=== PATIENT | male | born 1940 | race Caucasian/White ===

== ENCOUNTER → 2016-09-16 | Outpatient (CLI) | payer MEDICARE ==
--- NOTE | 2016-09-16 14:04 | US ---
EXAMINATION TYPE: US venous doppler duplex LE RT DATE OF EXAM: 09/16/2016 1:45 PM COMPARISON: 11/21/2014 CLINICAL HISTORY: M79.661 PAIN IN RT LOWER LIMB. Edema. SIDE PERFORMED: Right leg. TECHNIQUE: The lower extremity deep venous system is examined utilizing real time linear array sonog raven with graded compression, doppler sonography and color-flow sonography. VESSELS IMAGED: External Iliac Vein (EIV) Common Femoral Vein Deep Femoral Vein Greater Saphenous Vein * Femoral Vein Popliteal Vein Small Saphenous Vein * Proximal Calf Veins (* superficial vessels) Right Leg: No evidence of DVT visualized. Limited due to large body habitus. IMPRESSION: 1. Limited exam due to above findings. No diagnostic evidence of DVT as visualized.
== END ==
LOC: RADUSWWP 12:44
PROVIDERS: ATTEND Internal Medicine
DX: M79.661 Pain in right lower leg (principal)

== ENCOUNTER → 2016-10-04 | Outpatient (CLI) | payer MEDICARE ==
--- NOTE | 2016-10-09 10:05 | P.ARTDOP ---
Arterial Doppler LOWER EXTREMITY ARTERIAL DOPPLER: DATE OF SERVICE: 10/04/2016 Reason for study: Right lower leg wound. Doppler waveforms: Multiphasic bilaterally throughout. Pulse volume recording: Normal configuration. Pressure gradients: Only mild distally. Ankle-brachial indices: Greater than 1 bilaterally. Toe pressures: 70 on the right, 50 on the left Impression: Normal proximal study. Decreased toe pressures of uncertain significance. May be vasospasm or very distal disease. Tissue perfusion is quite adequate for healing..
== END ==
LOC: RADUSWWP 08:47
PROVIDERS: ATTEND Podiatrist
DX: M79.604 Pain in right leg (principal)
CPT/HCPCS: 93923

== ENCOUNTER 2017-07-18 10:42 | Emergency (ER) | payer MEDICARE ==
[2017-07-18 10:59] LABS: Glucose,Whole Blood 132 mg/dL (75-99)
[2017-07-18] MEDS ORDERED: SODIUM CHLORIDE 0.9% 1,000 ML IV STA (11:00)
--- NOTE | 2017-07-18 11:22 | ED ---
General Adult HPI - General Chief complaint: Neuro Symptoms/Deficit Stated complaint: Poss CVA Time Seen by Provider: 07/18/17 10:56 Source: patient, RN notes reviewed, old records reviewed Mode of arrival: EMS Limitations: no limitations - History of Present Illness Initial comments: This is a 69-year-old male to the ER for evaluation. Patient comes in with history of multiple medical comorbidities for evaluation regarding weakness not feeling himself. Patient states he just doesn't feel right. Some mild weakness in the left side. No headache mild congestion, no recent fevers. No abdominal pain no shortness of breath or chest pain - Related Data Home Medications Medication Instructions Recorded Confirmed Allopurinol [Zyloprim] 100 mg PO DAILY 09/19/16 07/18/17 Ascorbic Acid [Vitamin C] 2,000 mg PO DAILY 09/19/16 07/18/17 Aspirin 81 mg PO DAILY 09/19/16 07/18/17 Atenolol [Tenormin] 50 mg PO DAILY 09/19/16 07/18/17 Atorvastatin [Lipitor] 40 mg PO HS 09/19/16 07/18/17 Carbidopa-Levodopa 25-250 mg 1 each PO TID 09/19/16 07/18/17 [Sinemet 25-250] Cinnamon Bark [Cinnamon] 2,000 mg PO DAILY 09/19/16 07/18/17 Donepezil [Aricept] 10 mg PO HS 09/19/16 07/18/17 Furosemide [Lasix] 40 mg PO DAILY 09/19/16 07/18/17 Lisinopril [Zestril] 5 mg PO DAILY 09/19/16 07/18/17 Magnesium 400 mg PO DAILY 09/19/16 07/18/17 Multivitamin [Men's Multi-Vitamin] 1 each PO DAILY 09/19/16 07/18/17 Oxybutynin Chloride [Ditropan XL] 10 mg PO DAILY 09/19/16 07/18/17 Potassium 595 mg PO DAILY 09/19/16 07/18/17 Sertraline [Zoloft] 100 mg PO DAILY 09/19/16 07/18/17 carBAMazepine [TEGretol] 400 mg PO TID 09/19/16 07/18/17 rOPINIRole HCL [Requip] 3 mg PO HS 09/19/16 07/18/17 Brimonidine Tartrate [Alphagan P 1 drop LEFT EYE BID 07/18/17 07/18/17 0.2% Ophth Soln] Ergocalciferol [Vitamin D2] 50,000 unit PO DUCKWORTH 07/18/17 07/18/17 Latanoprost Ophth [Xalatan 0.005%] 1 drops BOTH EYES HS 07/18/17 07/18/17 Levothyroxine Sodium [Synthroid] 300 mcg PO DAILY 07/18/17 07/18/17 Allergies Allergy/AdvReac Type Severity Reaction Status Date / Time Sulfa (Sulfonamide Allergy Anaphylaxis Verified 07/18/17 11:20 Antibiotics) Review of Systems ROS Statement: Those systems with pertinent positive or pertinent negative responses have been documented in the HPI. ROS Other: All systems not noted in ROS Statement are negative. Past Medical History Past Medical History: Atrial Fibrillation, Cancer, Deep Vein Thrombosis (DVT), Hyperlipidemia, Hypertension, Memory Impairment, Neurologic Disorder, Skin Disorder, Sleep Apnea/CPAP/BIPAP, Thyroid Disorder Additional Past Medical History / Comment(s): trigeminal neuralgia History of Any Multi-Drug Resistant Organisms: None Reported Past Surgical History: Heart Catheterization With Stent, Hernia Repair Additional Past Surgical History / Comment(s): lithotripsy Past Anesthesia/Blood Transfusion Reactions: No Reported Reaction Date of Last Stent Placement:: unknown Past Psychological History: No Psychological Hx Reported Past Alcohol Use History: None Reported - Past Family History Mother Family Medical History: No Reported History Father History Unknown: Yes Additional Family Medical History / Comment(s): Father left the home when pt was 4 yrs old. General Exam - General Exam Comments Initial Comments: NIH of 2 left-sided weakness Limitations: no limitations General appearance: alert, in no apparent distress Head exam: Present: atraumatic, normocephalic, normal inspection Eye exam: Present: normal appearance, PERRL, EOMI. Absent: scleral icterus, conjunctival injection, periorbital swelling ENT exam: Present: normal exam, mucous membranes moist Neck exam: Present: normal inspection. Absent: tenderness, meningismus, lymphadenopathy Respiratory exam: Present: normal lung sounds bilaterally. Absent: respiratory distress, wheezes, rales, rhonchi, stridor Cardiovascular Exam: Present: regular rate, normal rhythm, normal heart sounds. Absent: systolic murmur, diastolic murmur, rubs, gallop, clicks GI/Abdominal exam: Present: soft, normal bowel sounds. Absent: distended, tenderness, guarding, rebound, rigid Extremities exam: Present: normal inspection, full ROM, normal capillary refill. Absent: tenderness, pedal edema, joint swelling, calf tenderness Back exam: Present: normal inspection Neurological exam: Present: alert, oriented X3, CN II-XII intact Psychiatric exam: Present: normal affect, normal mood Skin exam: Present: warm, dry, intact, normal color. Absent: rash Course Vital Signs 07/18/17 07/18/17 07/18/17 10:46 11:54 13:16 Pulse Rate 85 77 99 Respiratory 22 20 18 Rate Blood Pressure 161/108 145/102 132/85 O2 Sat by Pulse 94 L 98 99 Oximetry 07/18/17 14:08 Pulse Rate 80 Respiratory 18 Rate Blood Pressure 160/105 O2 Sat by Pulse 100 Oximetry - Reevaluation(s) Reevaluation #1: 07/18/17 15:04 Patient not TPA candidate secondary to improving symptoms, low NIH EKG Findings - EKG Comments: EKG Findings:: EKG shows A. fib rate of 81, QRS 112, QTc 478 Medical Decision Making - Medical Decision Making 69 female the ER for evaluation. Patient presents today for evaluation regards to left-sided weakness as well as pneumonia. Patient has resolving symptoms. We'll treat patient for underlying infection, admit for neurological evaluation and treatment, monitoring of neurological state - Lab Data Result diagrams: 07/18/17 10:57 07/18/17 10:57 Lab Results 07/18/17 07/18/17 07/18/17 Range/Units 10:48 10:57 10:57 WBC 8.5 (3.8-10.6) k/uL RBC 3.80 L (4.30-5.90) m/uL Hgb 13.2 (13.0-17.5) gm/dL Hct 39.1 (39.0-53.0) % MCV 102.7 H (80.0-100.0) fL MCH 34.6 (25.0-35.0) pg MCHC 33.7 (31.0-37.0) g/dL RDW 13.4 (11.5-15.5) % Plt Count 145 L (150-450) k/uL Neutrophils % 56 % Lymphocytes % 37 % Monocytes % 3 % Eosinophils % 2 % Basophils % 1 % Neutrophils # 4.7 (1.3-7.7) k/uL Lymphocytes # 3.1 (1.0-4.8) k/uL Monocytes # 0.3 (0-1.0) k/uL Eosinophils # 0.2 (0-0.7) k/uL Basophils # 0.0 (0-0.2) k/uL Macrocytosis Slight PT (9.0-12.0) sec INR (<1.2) APTT (22.0-30.0) sec Sodium (137-145) mmol/L Potassium (3.5-5.1) mmol/L Chloride (98-107) mmol/L Carbon Dioxide (22-30) mmol/L Anion Gap mmol/L BUN (9-20) mg/dL Creatinine (0.66-1.25) mg/dL Est GFR (CKD-EPI)AfAm (>60 ml/min/1.73 sqM) Est GFR (CKD-EPI)NonAf (>60 ml/min/1.73 sqM) Glucose (74-99) mg/dL POC Glucose (mg/dL) 132 H (75-99) mg/dL POC Glu Chief Telephone Operator ID [place] Calcium (8.4-10.2) mg/dL Phosphorus (2.5-4.5) mg/dL Magnesium (1.6-2.3) mg/dL Total Bilirubin (0.2-1.3) mg/dL AST (17-59) U/L ALT (21-72) U/L Alkaline Phosphatase (38-126) U/L Total Creatine Kinase 87 (55-170) U/L CK-MB (CK-2) 2.9 H* (0.0-2.4) ng/mL CK-MB (CK-2) Rel Index 3.3 Troponin I <0.012 (0.000-0.034) ng/mL Total Protein (6.3-8.2) g/dL Albumin (3.5-5.0) g/dL 07/18/17 07/18/17 Range/Units 10:57 10:57 WBC (3.8-10.6) k/uL RBC (4.30-5.90) m/uL Hgb (13.0-17.5) gm/dL Hct (39.0-53.0) % MCV (80.0-100.0) fL MCH (25.0-35.0) pg MCHC (31.0-37.0) g/dL RDW (11.5-15.5) % Plt Count (150-450) k/uL Neutrophils % % Lymphocytes % % Monocytes % % Eosinophils % % Basophils % % Neutrophils # (1.3-7.7) k/uL Lymphocytes # (1.0-4.8) k/uL Monocytes # (0-1.0) k/uL Eosinophils # (0-0.7) k/uL Basophils # (0-0.2) k/uL Macrocytosis PT 10.4 (9.0-12.0) sec INR 1.1 (<1.2) APTT 21.3 L (22.0-30.0) sec Sodium 145 (137-145) mmol/L Potassium 4.2 (3.5-5.1) mmol/L Chloride 109 H (98-107) mmol/L Carbon Dioxide 22 (22-30) mmol/L Anion Gap 14 mmol/L BUN 20 (9-20) mg/dL Creatinine 0.78 (0.66-1.25) mg/dL Est GFR (CKD-EPI)AfAm >90 (>60 ml/min/1.73 sqM) Est GFR (CKD-EPI)NonAf 87 (>60 ml/min/1.73 sqM) Glucose 137 H (74-99) mg/dL POC Glucose (mg/dL) (75-99) mg/dL POC Glu Chief Telephone Operator ID Calcium 9.2 (8.4-10.2) mg/dL Phosphorus 3.6 (2.5-4.5) mg/dL Magnesium 2.0 (1.6-2.3) mg/dL Total Bilirubin 0.5 (0.2-1.3) mg/dL AST 27 (17-59) U/L ALT 30 (21-72) U/L Alkaline Phosphatase 77 (38-126) U/L Total Creatine Kinase (55-170) U/L CK-MB (CK-2) (0.0-2.4) ng/mL CK-MB (CK-2) Rel Index Troponin I (0.000-0.034) ng/mL Total Protein 6.7 (6.3-8.2) g/dL Albumin 3.8 (3.5-5.0) g/dL - Radiology Data Radiology results: report reviewed (CT brain negative, chest x-ray positive pneumonia), image reviewed Disposition Clinical Impression: Cerebrovascular accident, Pneumonia, Weakness Disposition: ADMITTED IP TO THIS [facility] Condition: Fair
[2017-07-18 11:23] LABS: Basophils % (A) 1 %; Eosinophils # (A) 0.2 k/uL (0-0.7); Eosinophils % (A) 2 %; HCT 39.1 % (39.0-53.0); HGB 13.2 gm/dL (13.0-17.5); Lymphocytes # (A) 3.1 k/uL (1.0-4.8); Lymphocytes % (A) 37 %; MCH 34.6 pg (25.0-35.0); MCHC 33.7 g/dL (31.0-37.0); MCV 102.7 fL (80.0-100.0); Macrocytosis Slight; Mean Platelet Volume 7.7; Monocytes # (A) 0.3 k/uL (0-1.0); Monocytes % (A) 3 %; Neutrophils # (A) 4.7 k/uL (1.3-7.7); Neutrophils % (A) 56 %; Platelet Count 145 k/uL (150-450); RDW 13.4 % (11.5-15.5); WBC 8.5 k/uL (3.8-10.6)
[2017-07-18 11:37] LABS: ALT 30 U/L (21-72); AST 27 U/L (17-59); Albumin 3.8 g/dL (3.5-5.0); Alkaline Phosphatase 77 U/L (38-126); Anion Gap 14 mmol/L; Blood Urea Nitrogen 20 mg/dL (9-20); Calcium 9.2 mg/dL (8.4-10.2); Carbon Dioxide 22 mmol/L (22-30); Chloride 109 mmol/L (98-107); Glucose 137 mg/dL (74-99); Phosphorus 3.6 mg/dL (2.5-4.5); Potassium 4.2 mmol/L (3.5-5.1); Sodium 145 mmol/L (137-145); Total Bilirubin 0.5 mg/dL (0.2-1.3); Total Protein 6.7 g/dL (6.3-8.2)
--- NOTE | 2017-07-18 11:53 | CT ---
EXAMINATION TYPE: CT brain wo con DATE OF EXAM: 07/18/2017 COMPARISON: 03/21/2015 INDICATION: Possible CVA DLP: 1120.80 mGycm, Automated exposure control for dose reduction was used. CONTRAST: None CT of the brain is performed utilizing 3 mm thick sections through the posterior fossa and 3 mm thick sections through the remaining calvarium. Study is performed within 24 hours of arrival to the hosp ital. No abnormal hyperdensity is present to suggest an acute intracranial hemorrhage. No suspicious solid mass lesion is evident. There is mass affect on the brainstem from an enlarging b asilar artery aneurysm. This currently measures approximately 2.2 x 2.8 cm. Previous transverse dimen leland is 1.8 cm. The more distal basilar artery remains prominent but not enlarged from the comparison and is stable at 0.8 cm. The right vertebral artery appears aneurysmal and is slightly increased in size from the prior study increased to 1.3 cm from 1.0 cm. No acute infarcts are evident. Ventricles and sulci are prominent for the patient age. Paranasal sinuses and mastoid air cells within the [id number] are clear. IMPRESSIONS: 1. 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 This is increased from 1.8 cm to at least 2.2 cm in transverse dimension. 2. 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
--- NOTE | 2017-07-18 11:54 | XR ---
EXAMINATION TYPE: XR chest 2V DATE OF EXAM: 07/18/2017 COMPARISON: NONE HISTORY: Shortness of breath TECHNIQUE: Frontal and lateral views of the chest are obtained. FINDINGS: Scattered senescent parenchymal changes noted. Left basilar infiltrate is difficult to exclude. Correlate clinically and consider progress studies. The heart is enlarged without evidence for overt failure. Mediastinal structures are stable and grossly unremarkable. No evidence for hilar prominence. Degenerative changes dorsal spine. IMPRESSION: 1. Left basilar infiltrate is difficult to exclude. Correlate clinically and consider progress studie s.
[2017-07-18 11:55] LABS: Creatine Kinase 87 U/L (55-170)
[2017-07-18 12:04] LABS: INR 1.1 (<1.2); Prothrombin Time 10.4 sec (9.0-12.0)
[2017-07-18 12:08] LABS: Troponin I <0.012 ng/mL (0.000-0.034)
[2017-07-18 12:09] LABS: Partial Thromboplastin Time 21.3 sec (22.0-30.0)
[2017-07-18 12:16] LABS: Creatine Kinase MB 2.9 ng/mL (0.0-2.4)
[2017-07-18] MEDS ORDERED: cefTRIAXone IN SWFI 1,000 MG/10 ML SYRINGE IVP STA (13:30)
[2017-07-18] MEDS ORDERED: SODIUM CHLORIDE 0.9% 1,000 ML IV SCH (13:30)
[2017-07-18] MEDS ORDERED: PNEUMONIA PROTOCOL UTILIZED 1 EACH MISC PO PRN (13:30)
[2017-07-18] MEDS ORDERED: AZITHROMYCIN 500 MG in SODIUM CHLORIDE 0.9% 250 ML IVPB STA (13:30)
[2017-07-18] MEDS ORDERED: ONDANSETRON 4 MG/2 ML VIAL IVP STA (14:05)
[2017-07-18 14:22] VITALS: TEMP 98.9
[2017-07-18 15:13] VITALS: BMI 42.8
[2017-07-18 15:21] LABS: Appearance,Urine Clear (Clear); Bilirubin,Urine Negative (Negative); Blood,Urine Negative (Negative); Color,Urine Yellow; Glucose,Urine (UA) Negative (Negative); Ketones,Urine Negative (Negative); Leukocyte Esterase,Urine Negative (Negative); Nitrite,Urine Negative (Negative); Protein,Urine Trace (Negative); Urobilinogen,Urine <2.0 mg/dL (<2.0)
--- NOTE | 2017-07-18 15:54 | ED ---
Medical Decision Making - Medical Decision Making 77 male to the ED w neurological complaint, patient has positive CT findings of aneurysm with increase in size acutely, patient is to be transferred to care of prior NeuroSurgeon, at [facility]. - Lab Data Result diagrams: 07/18/17 10:57 07/18/17 10:57 Lab Results 07/18/17 07/18/17 07/18/17 Range/Units 10:48 10:57 10:57 WBC 8.5 (3.8-10.6) k/uL RBC 3.80 L (4.30-5.90) m/uL Hgb 13.2 (13.0-17.5) gm/dL Hct 39.1 (39.0-53.0) % MCV 102.7 H (80.0-100.0) fL MCH 34.6 (25.0-35.0) pg MCHC 33.7 (31.0-37.0) g/dL RDW 13.4 (11.5-15.5) % Plt Count 145 L (150-450) k/uL Neutrophils % 56 % Lymphocytes % 37 % Monocytes % 3 % Eosinophils % 2 % Basophils % 1 % Neutrophils # 4.7 (1.3-7.7) k/uL Lymphocytes # 3.1 (1.0-4.8) k/uL Monocytes # 0.3 (0-1.0) k/uL Eosinophils # 0.2 (0-0.7) k/uL Basophils # 0.0 (0-0.2) k/uL Macrocytosis Slight PT (9.0-12.0) sec INR (<1.2) APTT (22.0-30.0) sec Sodium (137-145) mmol/L Potassium (3.5-5.1) mmol/L Chloride (98-107) mmol/L Carbon Dioxide (22-30) mmol/L Anion Gap mmol/L BUN (9-20) mg/dL Creatinine (0.66-1.25) mg/dL Est GFR (CKD-EPI)AfAm (>60 ml/min/1.73 sqM) Est GFR (CKD-EPI)NonAf (>60 ml/min/1.73 sqM) Glucose (74-99) mg/dL POC Glucose (mg/dL) 132 H (75-99) mg/dL POC Glu Rate Reviewer ID [place] Calcium (8.4-10.2) mg/dL Phosphorus (2.5-4.5) mg/dL Magnesium (1.6-2.3) mg/dL Total Bilirubin (0.2-1.3) mg/dL AST (17-59) U/L ALT (21-72) U/L Alkaline Phosphatase (38-126) U/L Total Creatine Kinase 87 (55-170) U/L CK-MB (CK-2) 2.9 H* (0.0-2.4) ng/mL CK-MB (CK-2) Rel Index 3.3 Troponin I <0.012 (0.000-0.034) ng/mL Total Protein (6.3-8.2) g/dL Albumin (3.5-5.0) g/dL 07/18/17 07/18/17 Range/Units 10:57 10:57 WBC (3.8-10.6) k/uL RBC (4.30-5.90) m/uL Hgb (13.0-17.5) gm/dL Hct (39.0-53.0) % MCV (80.0-100.0) fL MCH (25.0-35.0) pg MCHC (31.0-37.0) g/dL RDW (11.5-15.5) % Plt Count (150-450) k/uL Neutrophils % % Lymphocytes % % Monocytes % % Eosinophils % % Basophils % % Neutrophils # (1.3-7.7) k/uL Lymphocytes # (1.0-4.8) k/uL Monocytes # (0-1.0) k/uL Eosinophils # (0-0.7) k/uL Basophils # (0-0.2) k/uL Macrocytosis PT 10.4 (9.0-12.0) sec INR 1.1 (<1.2) APTT 21.3 L (22.0-30.0) sec Sodium 145 (137-145) mmol/L Potassium 4.2 (3.5-5.1) mmol/L Chloride 109 H (98-107) mmol/L Carbon Dioxide 22 (22-30) mmol/L Anion Gap 14 mmol/L BUN 20 (9-20) mg/dL Creatinine 0.78 (0.66-1.25) mg/dL Est GFR (CKD-EPI)AfAm >90 (>60 ml/min/1.73 sqM) Est GFR (CKD-EPI)NonAf 87 (>60 ml/min/1.73 sqM) Glucose 137 H (74-99) mg/dL POC Glucose (mg/dL) (75-99) mg/dL POC Glu Rate Reviewer ID Calcium 9.2 (8.4-10.2) mg/dL Phosphorus 3.6 (2.5-4.5) mg/dL Magnesium 2.0 (1.6-2.3) mg/dL Total Bilirubin 0.5 (0.2-1.3) mg/dL AST 27 (17-59) U/L ALT 30 (21-72) U/L Alkaline Phosphatase 77 (38-126) U/L Total Creatine Kinase (55-170) U/L CK-MB (CK-2) (0.0-2.4) ng/mL CK-MB (CK-2) Rel Index Troponin I (0.000-0.034) ng/mL Total Protein 6.7 (6.3-8.2) g/dL Albumin 3.8 (3.5-5.0) g/dL - Radiology Data Radiology results: report reviewed (CT brain shows positive aneurysm), image reviewed Critical Care Time Critical Care Time: Yes Total Critical Care Time: 31 Disposition Clinical Impression: Cerebrovascular accident, Pneumonia, Weakness, Brain aneurysm Disposition: OTHER INSTITUTION NOT DEFINED Condition: Fair - Out of Hospital Transfer - Req. Specs Out of Hospital Transfer - Requested Specifics: Other Emergency Center ([facility])
--- NOTE | 2017-07-18 16:14 | P.CNNES ---
History of Present Illness Consult date: 07/18/17 Requesting physician: Francy Reynolds Reason for Consult: CVA History of Present Illness: Patient is a pleasant 69-year-old male who is being evaluated by the neurology service on 07/18/2017 per the request of Dr. Reynolds for CVA. Patient had taken a shower in the morning and when he got out of the shower he felt very weak and was just not feeling himself. found him sitting on the commode slumped over the counter of the sink. Patient was responsive but very weak. Patient complained of mild weakness on the left side. Patient was brought to [facility] for further evaluation. Patient does have history of basilar artery aneurysm that was being followed by [facility]. CT was done on admission which showed increasing size of the basilar artery aneurysm which has mass effect and compression of the mid brain stem. Size has increased from 1.8 cm to at least 2.2 cm in transverse dimension. Patient also has increasing right basilar artery aneurysm from 1.0 cm -1.3 cm. Chest x-ray revealed possible left basilar infiltrate. The staff nurse did a swallow trial and patient was unable to hold liquid in his mouth. Patient has left facial droop. Speech is mildly dysarthric. Vital signs on admission were pulse 85, respiratory rate 22, blood pressure 161/108, O2 saturation 94% on 2 L nasal cannula. Laboratory workup revealed WBCs 8.5, RBCs 3.80, hemoglobin 13.2, hematocrit 39.1. Platelets are low at 145. Creatinine kinase MB high at 2.9. At the time of my evaluation, patient is resting comfortably in bed and appears to be in no acute distress. Patient denies any increase in symptoms. Family is at the bedside. Review of Systems REVIEW OF SYSTEMS: Otherwise unremarkable and noncontributory. Past Medical History Past Medical History: Atrial Fibrillation, Cancer, Deep Vein Thrombosis (DVT), Hyperlipidemia, Hypertension, Memory Impairment, Neurologic Disorder, Skin Disorder, Sleep Apnea/CPAP/BIPAP, Thyroid Disorder Additional Past Medical History / Comment(s): trigeminal neuralgia History of Any Multi-Drug Resistant Organisms: None Reported Past Surgical History: Heart Catheterization With Stent, Hernia Repair Additional Past Surgical History / Comment(s): lithotripsy Past Anesthesia/Blood Transfusion Reactions: No Reported Reaction Date of Last Stent Placement:: unknown Past Psychological History: No Psychological Hx Reported Past Alcohol Use History: None Reported - Past Family History Mother Family Medical History: No Reported History Additional Family Medical History / Comment(s): Mother of complications after a stroke in her early 80s. Father History Unknown: Yes Additional Family Medical History / Comment(s): Father left the home when pt was 4 yrs old. Medications and Allergies Home Medications Medication Instructions Recorded Confirmed Type Allopurinol [Zyloprim] 100 mg PO DAILY 09/19/16 07/18/17 History Ascorbic Acid [Vitamin C] 2,000 mg PO DAILY 09/19/16 07/18/17 History Aspirin 81 mg PO DAILY 09/19/16 07/18/17 History Atenolol [Tenormin] 50 mg PO DAILY 09/19/16 07/18/17 History Atorvastatin [Lipitor] 40 mg PO HS 09/19/16 07/18/17 History Carbidopa-Levodopa 25-250 mg 1 each PO TID 09/19/16 07/18/17 History [Sinemet 25-250] Cinnamon Bark [Cinnamon] 2,000 mg PO DAILY 09/19/16 07/18/17 History Donepezil [Aricept] 10 mg PO HS 09/19/16 07/18/17 History Furosemide [Lasix] 40 mg PO DAILY 09/19/16 07/18/17 History Lisinopril [Zestril] 5 mg PO DAILY 09/19/16 07/18/17 History Magnesium 400 mg PO DAILY 09/19/16 07/18/17 History Multivitamin [Men's Multi-Vitamin] 1 each PO DAILY 09/19/16 07/18/17 History Oxybutynin Chloride [Ditropan XL] 10 mg PO DAILY 09/19/16 07/18/17 History Potassium 595 mg PO DAILY 09/19/16 07/18/17 History Sertraline [Zoloft] 100 mg PO DAILY 09/19/16 07/18/17 History carBAMazepine [TEGretol] 400 mg PO TID 09/19/16 07/18/17 History rOPINIRole HCL [Requip] 3 mg PO HS 09/19/16 07/18/17 History Brimonidine Tartrate [Alphagan P 1 drop LEFT EYE BID 07/18/17 07/18/17 History 0.2% Ophth Soln] Ergocalciferol [Vitamin D2] 50,000 unit PO DUCKWORTH 07/18/17 07/18/17 History Latanoprost Ophth [Xalatan 0.005%] 1 drops BOTH EYES HS 07/18/17 07/18/17 History Levothyroxine Sodium [Synthroid] 300 mcg PO DAILY 07/18/17 07/18/17 History Allergies Allergy/AdvReac Type Severity Reaction Status Date / Time Sulfa (Sulfonamide Allergy Anaphylaxis Verified 07/18/17 11:20 Antibiotics) Physical Examination - Vital Signs Vital Signs: Vital Signs Temp Pulse Pulse Resp BP BP Pulse Ox 07/18/17 14:21 98.9 F 89 18 142/98 98 07/18/17 14:08 80 18 160/105 100 07/18/17 13:16 99 18 132/85 99 07/18/17 11:54 77 20 145/102 98 07/18/17 10:46 85 22 161/108 94 L Intake and Output 07/18/17 07/18/17 07/18/17 06:59 14:59 22:59 Other: Weight 143.335 kg PHYSICAL EXAM: GENERAL APPEARANCE: Patient is an obese male who does not appear to be in any acute distress HEENT: Normocephalic, atraumatic, left facial asymmetry is seen. Patient positions his head toward the left. CARDIOVASCULAR: Regular rate and rhythm. ABDOMEN: Nontender, nondistended. EXTREMITIES: Show no edema or clubbing. NEUROLOGICAL EXAM: Patient is awake, alert, and oriented 3. Speech is mildly dysarthric. Language is normal. Strength is 5-/5 in left upper extremity and full in all other extremities. Sensory exam is normal to light touch in all 4 extremities. Left facial droop seen on cranial nerve testing. No tremors or seizure-like activity noted. Results - Laboratory Findings CBC and BMP: 07/18/17 10:57 07/18/17 10:57 Abnormal Lab Findings: Abnormal Labs 07/18/17 07/18/17 07/18/17 10:48 10:57 10:57 RBC 3.80 L MCV 102.7 H Plt Count 145 L APTT Chloride Glucose POC Glucose (mg/dL) 132 H CK-MB (CK-2) 2.9 H* Urine Protein 07/18/17 07/18/17 07/18/17 10:57 10:57 15:05 RBC MCV Plt Count APTT 21.3 L Chloride 109 H Glucose 137 H POC Glucose (mg/dL) CK-MB (CK-2) Urine Protein Trace H Assessment and Plan Plan: Impression: 1. Possible CVA 2. 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 Uncontrolled hypertension 4. Coronary artery disease Recommendation: Patient presents to emergency room with possible CVA with left- sided weakness and left facial droop. Computed tomography scan revealed increase in size of basilar artery aneurysm compressing the mid brainstem. I advise that patient be transferred to neurosurgery facility, possibly one patient is known to. Patient presented with elevated blood pressure and I recommend adjusting medication to normalize blood pressure. Continue neurological checks. I will continue to follow with you. Thank you for allowing me to participate in the care of your patient. If you have any questions, please feel free to call me. I performed an examination of the patient and discussed the management with the RESOURCE ROOM TEACHER. I have reviewed the RESOURCE ROOM TEACHER notes and agree with the findings and plan of care.
[2017-07-18 17:17] VITALS: BP 152/93; PULSE 80; RESP 20
[2017-07-19] MEDS ORDERED: AZITHROMYCIN 500 MG TAB PO SCH (14:00)
[2017-07-19] MEDS ORDERED: cefTRIAXone IN SWFI 1,000 MG/10 ML SYRINGE IVP SCH (14:00)
== END 2017-07-18 17:10 ==
LOC: EC 10:42 → UNDOADMIN 13:31 → 6SEL 13:31 → EC 14:21
DX: I63.9 Cerebral infarction, unspecified (principal); J18.9 Pneumonia, unspecified organism; I67.1 Cerebral aneurysm, nonruptured; I48.91 Unspecified atrial fibrillation; E78.5 Hyperlipidemia, unspecified; I10 Essential (primary) hypertension; E07.9 Disorder of thyroid, unspecified; G47.30 Sleep apnea, unspecified; Z99.89 Dependence on other enabling machines and devices; Z86.718 Personal history of other venous thrombosis and embolism; Z85.9 Personal history of malignant neoplasm, unspecified; Z79.82 Long term (current) use of aspirin; Z79.899 Other long term (current) drug therapy; Z88.2 Allergy status to sulfonamides
CPT/HCPCS: 36415; 93005; 80053; 82550; 82553; 83735; 84100; 84484; 85025; 85610; 85730; 81003; 87086; 71046; 70450; 99291; 96374; 96375; 96361 ×3; J2405; J0456; J0696